=== PATIENT | female | born 2000 | race Caucasian/White ===

== ENCOUNTER 2020-07-21 01:12 | Emergency (ER) | payer BC ==
[2020-07-21] MEDS ORDERED: ONDANSETRON HCL INJ/PF 4 MG/2 ML SDV IV ONE (01:47)
[2020-07-21] MEDS ORDERED: NORMAL SALINE 1000 ML 1,000 ML IV ONE (01:47)
[2020-07-21 02:02] LABS: ABSOLUTE BASOPHILS # (AUTO) 0.1 10^3/uL (0.0-0.2); ABSOLUTE EOSINOPHILS # (AUTO) 0.3 10^3/uL (0.0-0.6); ABSOLUTE LYMPHOCYTES (AUTO) 2.9 10^3/uL (0.5-4.7); ABSOLUTE MONOCYTES (AUTO) 0.8 10^3/uL (0.1-1.4); ABSOLUTE NEUT (AUTO) 6.2 10^3/uL (1.7-8.2); BASOPHILS % (AUTO) 0.9 % (0-2); EOSINOPHILS % (AUTO) 2.8 % (0-6); HEMATOCRIT 37.1 % (36.0-47.0); HEMOGLOBIN 12.5 g/dL (12.0-15.5); LYMPHOCYTES % (AUTO) 27.7 % (13-45); MEAN CORPUSCULAR HGB CONC 33.7 g/dL (32.0-36.0); MEAN CORPUSCULAR VOLUME 80 fl (80-97); MONOCYTES % (AUTO) 8.2 % (3-13); PLATELET COUNT 306 10^3/uL (150-450); RED BLOOD COUNT 4.63 10^6/uL (3.72-5.28); RED CELL DISTRIBUTION WIDTH 14.7 % (11.5-14.0); SEGMENTED NEUTROPHILS % (AUTO) 60.4 % (42-78); TOTAL CELLS COUNTED % (AUTO) 100 %; WHITE BLOOD COUNT 10.3 10^3/uL (4.0-10.5)
--- NOTE | 2020-07-21 02:08 | ER Document Report ---
ED General - General Chief Complaint: Psych Problem Stated Complaint: PSYCH Time Seen by Provider: 07/21/20 01:38 EST Primary Care Provider: CITLALY BOSWELL MD [NO LOCAL MD] - Follow up as needed - [facility] Notes: Patient is a 19-year-old female with a history of bipolar, major depressive disorder, anxiety, and borderline personality disorder who presents with suicidal ideation and self-harm. Patient was at a Halloween green party drinking with friends when she became upset. She states that she was told that she was making others feel comfortable. She went to her friend's car and cut her left forearm multiple times with an X-[employer] knife. EMS was called and patient was brought to the ED. Patient states she "wishes she cut her throat instead" and "wants to ". She denies homicidal ideation and hallucinations. She reports headache and nausea but denies vomiting, shortness of breath, chest pain, and any other injuries. Patient denies tobacco and recreational drug use. Patient has a history of prior psych hospitalizations. - Related Data Allergies/Adverse Reactions: No Known Allergies Allergy (Verified 07/21/20 01:37 EST) Past Medical History - General Information source: Patient - Social History Smoking Status: Current Some Day Smoker Frequency of alcohol use: Social Drug Abuse: Marijuana Family History: Reviewed & Not Pertinent Patient has homicidal ideation: No Psychiatric Medical History: Reports: Hx Bipolar Disorder - Immunizations Immunizations up to date: Yes Hx Diphtheria, Pertussis, Tetanus Vaccination: Yes Review of Systems - Review of Systems Constitutional: No symptoms reported EENT: No symptoms reported Cardiovascular: No symptoms reported Respiratory: No symptoms reported Gastrointestinal: See HPI Genitourinary: No symptoms reported Female Genitourinary: No symptoms reported Musculoskeletal: See HPI Skin: No symptoms reported Hematologic/Lymphatic: No symptoms reported Neurological/Psychological: See HPI Physical Exam - Vital signs Vitals: Temp Pulse Resp BP Pulse Ox 98.1 F 105 H 18 114/59 L 99 07/21/20 01:17 EST 07/21/20 01:17 EST 07/21/20 01:17 EST 07/21/20 01:17 EST 07/21/20 01:17 EST - Notes Notes: PHYSICAL EXAMINATION: VITALS: Vitals reviewed and within normal limits. GENERAL: Well-appearing, well-nourished and in no acute distress. HEAD: Atraumatic, normocephalic. EYES: Pupils equal, round, and reactive to light, extraocular movements intact, sclera anicteric, conjunctiva are normal. ENT: Nares patent. Moist mucous membranes. NECK: Normal range of motion, supple without lymphadenopathy. LUNGS: Breath sounds clear to auscultation bilaterally and equal. No wheezes, rales, or rhonchi. HEART: Regular, rate, and rhythm without murmurs. ABDOMEN: Soft, nontender, normoactive bowel sounds. No guarding, no rebound. No masses appreciated. EXTREMITIES: ~2cm laceration to left mid forearm that is superficial but has some separation. Many superficial lacerations to her anterior forearm with some bleeding. Normal range of motion, no pitting or edema. No cyanosis. NEUROLOGICAL: No focal neurological deficits. Moves all extremities spontaneously and on command. PSYCH: Depressed and angry mood, normal affect. SKIN: Warm, Dry, normal turgor, no rashes or lesions noted. Course - Re-evaluation Re-evalutation: Patient is a 19 y/o female with a hx of bipolar, major depression, anxiety and borderline personality disorders who presents with self harm and suicidal ideation. Vital signs are within normal limits. On exam, multiple superficial lacerations to the left forearm. Will examine further once patient is in a room. Patient placed on IVC hold and papers completed. 07/21/20 03:12 CBC unremarkable with normal limits. CMP unremarkable. Serum hCG negative. UA shows small blood but is otherwise unremarkable. Salicylate and Tylenol levels negative. UDS negative. Serum alcohol elevated at 187. 07/21/20 03:20 Anterior left forearm examined and patient has many superficial lacerations. One laceration to her mid forearm has some separation but is superficial and not through the dermis. Will proceed with using dermabond to close and dress her entire forearm with nonadhesive dressing. 07/21/20 03:40 With permission from patient, I talked with her mother and updated her on her IVC status and what the plan is. Mother understands and will await a call in the morning. 07/21/20 04:09 Laceration closed with dermabond successfully. Patient tolerated procedure well. Patient is now medically cleared and is awaiting psych consult in the morning. - Vital Signs Vital signs: Temp Pulse Resp BP Pulse Ox 98.3 F 105 H 18 118/53 L 96 07/21/20 04:11 07/21/20 01:17 EST 07/21/20 06:01 07/21/20 06:01 07/21/20 06:01 - Laboratory Result Diagrams: 07/21/20 01:35 EST 07/21/20 01:35 EST Laboratory results interpreted by me: 07/21/20 07/21/20 07/21/20 01:30 EST 01:35 EST 01:35 EST RDW 14.7 H Potassium 3.5 L Chloride 111 H Carbon Dioxide 18 L Urine Blood SMALL H Salicylates < 1.0 L Acetaminophen < 10 L Procedures - Laceration/Wound Repair Left Mid- Arm Wound length (cm): 2 Wound's Depth, Shape: Superficial Laceration pre-procedure: Shur-Clens applied Wound explored: Clean Wound Repaired With: Dermabond Notes: The wound is 2 cm to the left mid, anterior forearm. The wound was copiously irrigated with normal saline and surgical cleanser. The wound was explored for foreign bodies and none were found. The edges were reapproximated using Dermabond. Bleeding was well controlled and the patient tolerated the procedure well. Discharge - Discharge Clinical Impression: Suicidal ideation Intentional self-harm by sharp object Qualifiers: Encounter type: initial encounter Qualified Code(s): X78.9XXA - Intentional self-harm by unspecified sharp object, initial encounter Bipolar disorder Qualifiers: Active/Remission status: remission status unspecified Qualified Code(s): F31.9 - Bipolar disorder, unspecified Condition: Stable Disposition: PSYCH HOSP/UNIT Referrals: CITLALY BOSWELL MD [NO LOCAL MD] - Follow up as needed
[2020-07-21 02:09] LABS: ALBUMIN 4.6 g/dL (3.7-5.6); ALCOHOL 187 mg/dL (NONE DETECTED); ALKALINE PHOSPHATASE 79 U/L (50-135); ANION GAP 15 (5-19); ASPARTATE AMINO TRANSFERASE 26 U/L (5-30); BILIRUBIN,TOTAL 0.2 mg/dL (0.2-1.3); BLOOD UREA NITROGEN 10 mg/dL (7-20); CALCIUM 9.5 mg/dL (8.4-10.2); CARBON DIOXIDE 18 mmol/L (22-30); CHLORIDE 111 mmol/L (98-107); GLUCOSE 96 mg/dL (75-110); POTASSIUM 3.5 mmol/L (3.6-5.0); TOTAL PROTEIN 7.9 g/dL (6.3-8.2)
[2020-07-21 02:15] LABS: ACETAMINOPHEN < 10 ug/mL (10-30); SALICYLATE < 1.0 mg/dL (2.0-20.0)
[2020-07-21 02:24] LABS: APPEARANCE,URINE CLEAR; BILIRUBIN,URINE NEGATIVE (NEGATIVE); COLOR,URINE COLORLESS; GLUCOSE, URINE NEGATIVE (NEGATIVE); KETONES,URINE NEGATIVE (NEGATIVE); LEUKOCYTE ESTERASE,URINE NEGATIVE (NEGATIVE); NITRITE,URINE NEGATIVE (NEGATIVE); PROTEIN,URINE NEGATIVE (NEGATIVE); URINE SPECIFIC GRAVITY 1.002; UROBILINOGEN,URINE NEGATIVE mg/dL (<2.0)
[2020-07-21 02:40] LABS: URINE AMPHETAMINES SCREEN NEGATIVE; URINE BARBITURATES SCREEN NEGATIVE; URINE BENZODIAZEPINES SCREEN NEGATIVE; URINE COCAINE SCREEN NEGATIVE; URINE MARIJUANA (THC) SCREEN NEGATIVE; URINE METHADONE SCREEN NEGATIVE; URINE PHENCYCLIDINE SCREEN NEGATIVE
--- NOTE | 2020-07-21 08:37 | EKG REPORT ---
SEVERITY:- NORMAL ECG - SINUS RHYTHM : Confirmed by: Dm Beltran MD 21-Jul-2020 08:36:51
[2020-07-21 15:19] VITALS: BP 100/48
== END 2020-07-21 15:19 ==
LOC: ER 01:12
DX: S51.812A Laceration without foreign body of left forearm, initial encounter (principal); F31.9 Bipolar disorder, unspecified; X78.9XXA Intentional self-harm by unspecified sharp object, initial encounter; R45.851 Suicidal ideations
CPT/HCPCS: 12001; 93005; 99285; 96361; 96374; 36415; 80307 ×4; 84703; 85025; 80053; 81001; 93010; J2405; J7030